=== PATIENT | female | born 1960 | race Caucasian/White ===

== ENCOUNTER 2018-12-10 11:20 | Day surgery (SDC) | payer BC ==
[~2018-12-10] VITALS: Ht 170.2 cm; Wt 54.7 kg
[~2018-12-10 11:20] MED LIST: ALBU3IS INH; ALLERTEC; BENZ100A PO; BISA5EC PO; Boniva150 MG PO; CEFD300 PO; CETI5 PO; CHLO500 PO; CHLORZOXAZONE PO; CHOL10002 PO; CIPR500 PO; CITRACAL + D E1 EACH PO; Cipro250 MG PO; DOCU100 PO; FAMO20 PO; GABA100 PO; Hydrocodone-Ap1 EA23 PO; LAVAP17G PO; LIDO5TP TOP; METCAR500 PO; MUSCLE RELAXER; Milk Of Ma800 MG/5 M PO; Norco 5-325 Ta1 EACH PO; OXYC10TA19 PO; OXYC5 PO; PRED20 PO; Percocet 5-3251 EACH PO; SENN187 PO; Seasonique 0.11 EACH PO
== END 2018-12-10 12:40 | disposition home or self-care (01) ==
LOC: ORSCSDS 11:20
PROVIDERS: Internal Medicine Gastroenterology
PROC: 0DBM8ZX Excision of Descending Colon, Via Natural or Artificial Opening Endoscopic, Diagnostic (ICD-10-PCS; principal; 2018-12-10 12:30)
DX: Z12.11 Encounter for screening for malignant neoplasm of colon (principal); D12.4 Benign neoplasm of descending colon; K64.8 Other hemorrhoids; J44.9 Chronic obstructive pulmonary disease, unspecified; F17.210 Nicotine dependence, cigarettes, uncomplicated; Z79.899 Other long term (current) drug therapy
CPT/HCPCS: 88305; J7120

== ENCOUNTER 2020-11-30 10:30 | Inpatient (IN) | payer OTHER ==
[~2020-11-30] VITALS: Ht 167.6 cm; Wt 57.6 kg
[~2020-11-30 10:30] MED LIST changes: -CITRACAL + D E1 EACH PO; +Caltrate-600 W1 EACH PO
[2020-11-30] MEDS ORDERED: Prednisone10 MG PO (11:10)
[2020-11-30] MEDS ORDERED: LEVFLO500 PO (11:11)
[2020-11-30 11:30] LABS: BASOPHILS ABSOLUTE AUTO 0.02 K/mm3 (0.00-0.23); BASOPHILS PERCENT AUTO 0 % (0-2); EOSINOPHILS ABSOLUTE AUTO 0.01 K/mm3 (0.00-0.68); EOSINOPHILS PERCENT AUTO 0 % (0-6); Hematocrit 44.5 % (33.0-51.0); Hemoglobin 14.4 g/dL (11.5-16.0); IMMATURE GRAN ABSOLUTE AUTO 0.02 K/mm3 (0.00-0.10); IMMATURE GRAN PERCENT AUTO 0 % (0-1); LYMPHOCYTES ABSOLUTE AUTO 0.57 K/mm3 (0.84-5.20); LYMPHOCYTES PERCENT AUTO 7 % (21-46); MONOCYTES PERCENT AUTO 1 % (4-13); Mean Corpuscular HGB 28.9 pg (26.0-34.0); Mean Corpuscular HGB Conc 32.4 g/dL (31.5-36.5); Mean Corpuscular Volume 89 fL (80-100); Mean Platelet Volume 10.1 fL (9.1-12.4); NEUTROPHILS ABSOLUTE AUTO 7.94 K/mm3 (1.96-9.15); NEUTROPHILS PERCENT AUTO 92 % (41-73); Platelet Count 247 K/mm3 (150-400); RDW Coefficient Variation 14.1 % (11.7-14.2); RDW Standard Deviation 45.7 fL (35.1-46.3); Red Blood Cell Count 4.98 M/mm3 (3.80-5.20); White Blood Cell Count 8.66 K/mm3 (4.00-11.30)
[2020-11-30 11:38] LABS: Alanine Aminotransfer (ALT/SGP 153 U/L (12-78); Albumin, Blood 3.5 g/dL (3.4-5.0); Albumin/Globulin Ratio 1.2 (0.8-1.8); Alk Phos 90 U/L (50-136); Anion Gap 5 mmol/L (6-16); Aspartate Aminotrans (AST/SGOT 76 U/L (12-37); Bilirubin, Total 0.7 mg/dL (0.1-1.0); Blood Urea Nitrogen 11 mg/dL (8-24); Bun/Creatinine Ratio 13.6 (12.0-20.0); CO2, Blood 24 mmol/L (21-32); Calcium, Blood 8.5 mg/dL (8.5-10.1); Chloride, Blood 111 mmol/L (98-108); Creatinine, Blood 0.81 mg/dL (0.40-1.00); Glomerular Filtration Rate >60 (60-); Glucose, Blood 132 mg/dL (70-99); Potassium, Blood 4.2 mmol/L (3.5-5.5); Sodium, Blood 140 mmol/L (136-145); Total Protein, Blood 6.5 g/dL (6.4-8.2); Troponin I <0.015 ng/mL (0.000-0.040)
[2020-11-30] MEDS ORDERED: Ventolin/Prove6.7 GM INH (12:53)
[2020-11-30] MEDS ORDERED: ALEN70 PO (13:08)
[2020-11-30 15:05] LABS: PCO2 Arterial 28.7 mmHg (35-45); PO2 Arterial 65.1 mmHg (80-100); pH Blood Arterial 7.46 (7.35-7.45)
--- NOTE | 2020-12-01 04:26 | NUR ---
SHIFT SUMMARY ASSUMED CARE OF PT AT 1900. PT IS A/OX4. HEART SOUNDS REGULAR, PT HAS EXPIRATORY WHEEZING T/O. PT IS ON RA. PT STATES THAT SHE FEELS SO MUCH BETTER NOW THAT SHE HAD THE LASIX. PT IS INDEPENDENT IN HER ROOM. NO ACUTE EVENTS DURING THE NIGHT. PT SLEPT MOST OF THE NIGHT. CALL LIGHT IN REACH, BED IN LOWEST POSTION.
[2020-12-01 05:15] LABS: BASOPHILS ABSOLUTE AUTO 0.02 K/mm3 (0.00-0.23); BASOPHILS PERCENT AUTO 0 % (0-2); EOSINOPHILS PERCENT AUTO 0 % (0-6); Hematocrit 42.1 % (33.0-51.0); Hemoglobin 13.9 g/dL (11.5-16.0); IMMATURE GRAN ABSOLUTE AUTO 0.05 K/mm3 (0.00-0.10); IMMATURE GRAN PERCENT AUTO 0 % (0-1); LYMPHOCYTES ABSOLUTE AUTO 0.55 K/mm3 (0.84-5.20); LYMPHOCYTES PERCENT AUTO 5 % (21-46); MONOCYTES ABSOLUTE AUTO 0.13 K/mm3 (0.16-1.47); MONOCYTES PERCENT AUTO 1 % (4-13); Mean Corpuscular HGB 28.3 pg (26.0-34.0); Mean Corpuscular Volume 86 fL (80-100); Mean Platelet Volume 10.1 fL (9.1-12.4); NEUTROPHILS ABSOLUTE AUTO 11.25 K/mm3 (1.96-9.15); NEUTROPHILS PERCENT AUTO 94 % (41-73); Platelet Count 254 K/mm3 (150-400); RDW Coefficient Variation 13.9 % (11.7-14.2); RDW Standard Deviation 43.1 fL (35.1-46.3); Red Blood Cell Count 4.91 M/mm3 (3.80-5.20)
[2020-12-01 05:35] LABS: Alanine Aminotransfer (ALT/SGP 115 U/L (12-78); Albumin, Blood 3.4 g/dL (3.4-5.0); Albumin/Globulin Ratio 1.2 (0.8-1.8); Alk Phos 75 U/L (50-136); Anion Gap 7 mmol/L (6-16); Aspartate Aminotrans (AST/SGOT 31 U/L (12-37); Bilirubin, Total 0.8 mg/dL (0.1-1.0); Blood Urea Nitrogen 14 mg/dL (8-24); Bun/Creatinine Ratio 17.9 (12.0-20.0); CO2, Blood 24 mmol/L (21-32); Calcium, Blood 8.7 mg/dL (8.5-10.1); Chloride, Blood 109 mmol/L (98-108); Creatinine, Blood 0.78 mg/dL (0.40-1.00); Globulin, Blood 2.8 g/dL (2.2-4.0); Glomerular Filtration Rate >60 (60-); Glucose, Blood 146 mg/dL (70-99); Magnesium, Blood 2.2 mg/dL (1.6-2.4); Potassium, Blood 3.6 mmol/L (3.5-5.5); Sodium, Blood 140 mmol/L (136-145); Total Protein, Blood 6.2 g/dL (6.4-8.2)
--- NOTE | 2020-12-01 17:01 | NUR ---
Per admit trigger, I was tasked to speak to Ellyn about ACP. She already had an advanced directive packet and told me she and her spouse will complete this hospitalization. Provided some guidence with good effect. Remodeler services will remain available.
--- NOTE | 2020-12-01 18:31 | NUR ---
SHIFT SUMMARY PT IS A&O, INDEPENT IN THE ROOM. PT IS ON RA AND CAN EXPERIENCE SOB AFTER WALKING AROUND IN ROOM. PT WAS PUT ON TELE AFTER DR LIGHT SAW PT IN AFTERNOON. PT CURENLTY RUNNING SINUS TACH AT 130. PT STARTED NEW BLOOD PRESSURE MEDICINE THIS EVENING. PT HAS A HARSH COUGH THAT IS NONPRODUCTIVE MOST OF THE TIME. LUNGS ARE DIM IN BASES AND SHE IS RECEIVING BREATHING TREATMENTS. CURENTLY IN ROOM ON PHONE, CALL LIGHT W/IN REACH.
--- NOTE | 2020-12-02 04:16 | NUR ---
SHIFT SUMMARY ASSUMED CARE OF PT AT 1900. PT IS A/OX4. INDEPENDENT IN ROOM. HEART SOUNDS REGULAR, TELE SHOWS SINUS TACH, LUNG SOUNDS HAVE EXP WHEEZING T/O. PT STATES SHE FEELS MORE SOB THAN YESTERDAY. PT C/O COUGH, CALLED HOSPITALIST AND ORDERED MEDICATIONS. PT TOOK A WALK AROUND THE HALLS BEUCASE SHE COULD NOT SLEEP. NO ACUTE EVENTS DURING THE NIGHT. CALL LIGHT IN REACH, BED IN LOWEST POSTION.
--- NOTE | 2020-12-02 17:14 | NUR ---
SUMMARY PT SITTING UP IN BED TALKING ON THE PHONE, PT HAS BEEN PLEASANT AND COOPERATIVE WITH CARE, INDEPENDENT IN THE ROOM, OCC COUGH, SOB WITH ACTIVITY, FAMILY HAS BEEN IN TO VISIT, NO COMPLAINTS, WILL CONT TO MONITOR
[2020-12-03 05:27] LABS: BASOPHILS ABSOLUTE AUTO 0.03 K/mm3 (0.00-0.23); BASOPHILS PERCENT AUTO 0 % (0-2); EOSINOPHILS PERCENT AUTO 0 % (0-6); Hematocrit 42.6 % (33.0-51.0); Hemoglobin 13.9 g/dL (11.5-16.0); IMMATURE GRAN PERCENT AUTO 1 % (0-1); LYMPHOCYTES PERCENT AUTO 3 % (21-46); MONOCYTES ABSOLUTE AUTO 0.54 K/mm3 (0.16-1.47); MONOCYTES PERCENT AUTO 3 % (4-13); Mean Corpuscular HGB 28.7 pg (26.0-34.0); Mean Corpuscular HGB Conc 32.6 g/dL (31.5-36.5); Mean Corpuscular Volume 88 fL (80-100); Mean Platelet Volume 10.1 fL (9.1-12.4); NEUTROPHILS ABSOLUTE AUTO 18.35 K/mm3 (1.96-9.15); NEUTROPHILS PERCENT AUTO 93 % (41-73); Platelet Count 248 K/mm3 (150-400); RDW Coefficient Variation 14.6 % (11.7-14.2); RDW Standard Deviation 46.5 fL (35.1-46.3); Red Blood Cell Count 4.84 M/mm3 (3.80-5.20); White Blood Cell Count 19.72 K/mm3 (4.00-11.30)
[2020-12-03 06:05] LABS: Albumin, Blood 3.5 g/dL (3.4-5.0); Anion Gap 8 mmol/L (6-16); Blood Urea Nitrogen 28 mg/dL (8-24); Bun/Creatinine Ratio 30.1 (12.0-20.0); CO2, Blood 24 mmol/L (21-32); Calcium, Blood 8.7 mg/dL (8.5-10.1); Chloride, Blood 106 mmol/L (98-108); Creatinine, Blood 0.93 mg/dL (0.40-1.00); Glomerular Filtration Rate >60 (60-); Glucose, Blood 121 mg/dL (70-99); Phosphorus, Blood 3.9 mg/dL (2.5-4.9); Potassium, Blood 4.5 mmol/L (3.5-5.5); Sodium, Blood 138 mmol/L (136-145)
--- NOTE | 2020-12-03 07:18 | NUR ---
SHIFT SUMMARY PATIENT ALERT AND ORIENTED. PATIENT HAD NO COMPLAINTS OF PAIN, DID HAVE SOME SHORTNESS OF BREATH. MEDICATED PER EMAR FOR COUGH. PATIENT HAD A HARD TIME SLEEPING TONIGHT. IV PATENT AND FLUSHED. BED IN LOWEST POSITION WITH WHEELS LOCKED. CALL LIGHT WITHIN REACH. REPORT GIVEN TO ONCOMING RN.
--- NOTE | 2020-12-03 18:24 | NUR ---
SHIFT SUMMARY: PT REPORTED INTERMITTENT CHEST TIGHTNESS/PRESSURE THIS MORNING, RADIATED TO L RIBCAGE AND L ARM. ON TELEMETRY, NOTED TO HAVE HAD RUN OF PVC'S AT TIME OF INCIDENT. OTHERWISE, TELEMETRY SHOWED SR 90-100. ON ROOM AIR, [facility] COUGH, HAVING I/E WHEEZES. FOUND TO HAVE ORAL THRUSH, STARTED ON NYSTATIN SUSPENSION. HAD REPEAT CXR, TROPONIN, AND BNP. IS INDEPENDENT IN ROOM. HAD LONG CONVERSATION AND MUCH TEACHING WITH PT AND HER SISTER TAVO THIS AFTERNOON, AND DR. DONALDSON AND Linnea ZEE FROM [facility] ALSO ENGAGED AND ANSWERED MANY OF THEIR QUESTIONS. TAKING ADEQUATE PO. DENIED PAIN. WAS HOPING TO GO HOME TODAY, BUT POSSIBLY SATURDAY PER PROVIDER.
[2020-12-04 05:20] LABS: BASOPHILS ABSOLUTE AUTO 0.02 K/mm3 (0.00-0.23); BASOPHILS PERCENT AUTO 0 % (0-2); EOSINOPHILS ABSOLUTE AUTO 0.01 K/mm3 (0.00-0.68); EOSINOPHILS PERCENT AUTO 0 % (0-6); Hematocrit 43.3 % (33.0-51.0); Hemoglobin 14.2 g/dL (11.5-16.0); IMMATURE GRAN ABSOLUTE AUTO 0.07 K/mm3 (0.00-0.10); IMMATURE GRAN PERCENT AUTO 0 % (0-1); LYMPHOCYTES PERCENT AUTO 4 % (21-46); MONOCYTES ABSOLUTE AUTO 0.48 K/mm3 (0.16-1.47); MONOCYTES PERCENT AUTO 3 % (4-13); Mean Corpuscular HGB 28.7 pg (26.0-34.0); Mean Corpuscular HGB Conc 32.8 g/dL (31.5-36.5); Mean Corpuscular Volume 88 fL (80-100); Mean Platelet Volume 9.8 fL (9.1-12.4); NEUTROPHILS ABSOLUTE AUTO 15.28 K/mm3 (1.96-9.15); NEUTROPHILS PERCENT AUTO 92 % (41-73); Platelet Count 244 K/mm3 (150-400); RDW Coefficient Variation 14.6 % (11.7-14.2); Red Blood Cell Count 4.94 M/mm3 (3.80-5.20); White Blood Cell Count 16.56 K/mm3 (4.00-11.30)
[2020-12-04 05:40] LABS: Albumin, Blood 3.5 g/dL (3.4-5.0); Anion Gap 5 mmol/L (6-16); Blood Urea Nitrogen 30 mg/dL (8-24); Bun/Creatinine Ratio 33.2 (12.0-20.0); CO2, Blood 27 mmol/L (21-32); Calcium, Blood 8.4 mg/dL (8.5-10.1); Chloride, Blood 104 mmol/L (98-108); Glomerular Filtration Rate >60 (60-); Glucose, Blood 105 mg/dL (70-99); Potassium, Blood 4.7 mmol/L (3.5-5.5); Sodium, Blood 136 mmol/L (136-145)
--- NOTE | 2020-12-04 05:47 | NUR ---
SHIFT SUMMARY PATIENT ALERT AND ORIENTED. HAS BEEN EXPERIENCING OCCASIONAL BOUTS OF COUGHING WITH RELATED SHORTNESS OF BREATH. SHE DID NOT HAVE ANY ADDITIONAL CHEST PAIN OR PRESSURE, BUT DID HAVE AN EPISODE OF NAUSEA AND DIZZINESS. VITALS WERE TAKEN AND WERE NORMAL. AND PATIENT REPORTED THE SENSATIONS QUICKLY WENT AWAY. IV PATENT AND FLUSHED. BED IN LOWEST POSITION WITH WHEELS LOCKED. CALL LIGHT WITHIN REACH. REPORT GIVEN TO ONCOMING RN.
--- NOTE | 2020-12-04 18:24 | NUR ---
SHIFT SUMMARY: NO ACUTE EVENTS THIS SHIFT. NO EPISODES OF CHEST DISCOMFORT OR DIZZINESS. COUGHING HAS REDUCED SIGNIFICANTLY. AMBULATING INDEPENDENTLY IN ROOM OFTEN. ORAL THRUSH APPEARS IMPROVED AND PT STATED THAT SXS ARE MUCH BETTER. BREATH SOUNDS IMPROVED, IS MOVING MORE AIR. DENIED PAIN, N/V. HAD VISIT FROM DAUGHTER TODAY. IS LOOKING FORWARD TO GOING HOME, POSSIBLY TOMORROW.
[2020-12-05 05:16] LABS: BASOPHILS ABSOLUTE AUTO 0.01 K/mm3 (0.00-0.23); BASOPHILS PERCENT AUTO 0 % (0-2); EOSINOPHILS ABSOLUTE AUTO 0.01 K/mm3 (0.00-0.68); EOSINOPHILS PERCENT AUTO 0 % (0-6); Hematocrit 47.5 % (33.0-51.0); Hemoglobin 15.4 g/dL (11.5-16.0); IMMATURE GRAN ABSOLUTE AUTO 0.07 K/mm3 (0.00-0.10); IMMATURE GRAN PERCENT AUTO 1 % (0-1); LYMPHOCYTES ABSOLUTE AUTO 1.01 K/mm3 (0.84-5.20); LYMPHOCYTES PERCENT AUTO 7 % (21-46); MONOCYTES ABSOLUTE AUTO 0.67 K/mm3 (0.16-1.47); MONOCYTES PERCENT AUTO 5 % (4-13); Mean Corpuscular HGB 28.5 pg (26.0-34.0); Mean Corpuscular HGB Conc 32.4 g/dL (31.5-36.5); Mean Corpuscular Volume 88 fL (80-100); Mean Platelet Volume 9.6 fL (9.1-12.4); NEUTROPHILS ABSOLUTE AUTO 12.24 K/mm3 (1.96-9.15); NEUTROPHILS PERCENT AUTO 87 % (41-73); Platelet Count 257 K/mm3 (150-400); RDW Coefficient Variation 14.6 % (11.7-14.2); RDW Standard Deviation 46.5 fL (35.1-46.3); White Blood Cell Count 14.01 K/mm3 (4.00-11.30)
--- NOTE | 2020-12-05 07:26 | NUR ---
SHIFT SUMMARY PATIENT ALERT AND ORIENTED. HAD NO COMPLAINTS OF PAIN AND MINIMAL SHORTNESS OF BREATH. SHE REPORTED THAT SHE WAS ABLE TO SLEEP WELL ALL NIGHT. SHE HAD MINIMAL NEEDS OVERNIGHT. IV PATENT AND FLUSHED. BED IN LOWEST POSITION WITH WHEELS LOCKED. CALL LIGHT WITHIN REACH. REPORT GIVEN TO ONCOMING RN.
[2020-12-05] MEDS ORDERED: ALBU2.5V5 INH (11:18)
[2020-12-05] MEDS ORDERED: IPRAT-ALBUT 0.5-3 ML INH (11:22)
[2020-12-05] MEDS ORDERED: LISI5 PO (11:24)
[2020-12-05] MEDS ORDERED: METO25ER PO (11:25)
[2020-12-05] MEDS ORDERED: NYSTATIN100000 UN1 PO (11:27)
[2020-12-05] MEDS ORDERED: Sodium Chloride15 M1 INH (11:28)
[2020-12-05] MEDS ORDERED: FLUT1DIS5 INH (11:29)
[2020-12-05] MEDS ORDERED: GUAI600T33 PO (11:32)
--- NOTE | 2020-12-05 13:49 | NUR ---
PT DISCHARGED THE PT VERBALIZED UNDERSTANDING OF THE DC INSTRUCTIONS, THE PTS PRESCRIPTIONS WERE FAXED TO [facility] IN [place] REQUESTED, THE PT APPEARED TO BE BREATHING EASILY ON RA AT THE TIME OF DC, THE PT WAS TRANSFERED VIA WHEELCHAIR TO THE FRONT TO MEET HER RIDE
[2021-05-25] MEDS ORDERED: SPIRIVA RESPIMAT4 G3 INH (10:29)
[2021-06-02] MEDS ORDERED: PRED20 PO (12:26)
== END 2020-12-05 12:30 | disposition home or self-care (01) | DRG 291 ==
LOC: ER 10:30 → MEDS 13:40 → ENPENDDIS 12-05 10:55 → MEDS 12-05 12:30
PROVIDERS: Emergency Medicine; Family Medicine; Nurse Practitioner Acute Care; ADMIT Internal Medicine
PROC: 5A09357 Assistance with Respiratory Ventilation, Less than 24 Consecutive Hours, Continuous Positive Airway Pressure (ICD-10-PCS; principal; 2020-11-30)
DX: I50.21 Acute systolic (congestive) heart failure (principal); J96.01 Acute respiratory failure with hypoxia; J44.1 Chronic obstructive pulmonary disease with (acute) exacerbation; J98.11 Atelectasis; I34.0 Nonrheumatic mitral (valve) insufficiency; Z66 Do not resuscitate; T38.0X5A Adverse effect of glucocorticoids and synthetic analogues, initial encounter; R74.01 Elevation of levels of liver transaminase levels; F17.210 Nicotine dependence, cigarettes, uncomplicated
CPT/HCPCS: 36415; 36600; 71045; 71260; 80053; 80069; 82803; 83735; 83880; 84484; 85025; 93005; 93010; 94640; 94664; 94667; 94668; 94760; 96374-59; 96375-59; 98960; 99285-25; 99407; A9270; C8929; J1650; J1940; J2930; Q9957; Q9967

== ENCOUNTER 2020-12-12 10:36 | Emergency (ER) | payer OTHER ==
[~2020-12-12] VITALS: Ht 167.6 cm; Wt 52.2 kg
[~2020-12-12 10:36] MED LIST changes: +ALBU2.5V5 INH; +ALEN70 PO; +FLUT1DIS5 INH; +GUAI600T33 PO; +IPRAT-ALBUT 0.5-3 ML INH; +LEVFLO500 PO; +LISI5 PO; +METO25ER PO; +NYSTATIN100000 UN1 PO; +Prednisone10 MG PO; +Sodium Chloride15 M1 INH; +Ventolin/Prove6.7 GM INH
[2020-12-12 11:42] LABS: BASOPHILS ABSOLUTE AUTO 0.05 K/mm3 (0.00-0.23); BASOPHILS PERCENT AUTO 0 % (0-2); EOSINOPHILS ABSOLUTE AUTO 0.08 K/mm3 (0.00-0.68); EOSINOPHILS PERCENT AUTO 1 % (0-6); Hematocrit 51.7 % (33.0-51.0); Hemoglobin 16.7 g/dL (11.5-16.0); IMMATURE GRAN PERCENT AUTO 1 % (0-1); LYMPHOCYTES ABSOLUTE AUTO 2.14 K/mm3 (0.84-5.20); LYMPHOCYTES PERCENT AUTO 16 % (21-46); MONOCYTES ABSOLUTE AUTO 0.61 K/mm3 (0.16-1.47); MONOCYTES PERCENT AUTO 5 % (4-13); Mean Corpuscular HGB 28.2 pg (26.0-34.0); Mean Corpuscular HGB Conc 32.3 g/dL (31.5-36.5); Mean Corpuscular Volume 87 fL (80-100); Mean Platelet Volume 9.2 fL (9.1-12.4); NEUTROPHILS ABSOLUTE AUTO 10.13 K/mm3 (1.96-9.15); NEUTROPHILS PERCENT AUTO 77 % (41-73); Platelet Count 256 K/mm3 (150-400); RDW Coefficient Variation 14.7 % (11.7-14.2); RDW Standard Deviation 47.1 fL (35.1-46.3); Red Blood Cell Count 5.93 M/mm3 (3.80-5.20); White Blood Cell Count 13.11 K/mm3 (4.00-11.30)
[2020-12-12 12:00] LABS: Alanine Aminotransfer (ALT/SGP 48 U/L (12-78); Albumin, Blood 3.6 g/dL (3.4-5.0); Albumin/Globulin Ratio 1.2 (0.8-1.8); Alk Phos 77 U/L (50-136); Anion Gap 6 mmol/L (6-16); Aspartate Aminotrans (AST/SGOT 23 U/L (12-37); Bilirubin, Total 0.6 mg/dL (0.1-1.0); Blood Urea Nitrogen 17 mg/dL (8-24); Bun/Creatinine Ratio 19.8 (12.0-20.0); CO2, Blood 27 mmol/L (21-32); Calcium, Blood 8.4 mg/dL (8.5-10.1); Chloride, Blood 102 mmol/L (98-108); Creatinine, Blood 0.86 mg/dL (0.40-1.00); Globulin, Blood 3.1 g/dL (2.2-4.0); Glomerular Filtration Rate >60 (60-); Glucose, Blood 77 mg/dL (70-99); Potassium, Blood 4.8 mmol/L (3.5-5.5); Sodium, Blood 135 mmol/L (136-145); Total Protein, Blood 6.7 g/dL (6.4-8.2); Troponin I <0.015 ng/mL (0.000-0.040)
[2021-05-25] MEDS ORDERED: SPIRIVA RESPIMAT4 G3 INH (10:29)
[2021-06-02] MEDS ORDERED: PRED20 PO (12:26)
== END 2020-12-12 14:12 | disposition home or self-care (01) ==
LOC: ER 10:36
PROVIDERS: Emergency Medicine
DX: J44.1 Chronic obstructive pulmonary disease with (acute) exacerbation (principal); Z79.52 Long term (current) use of systemic steroids; Z79.899 Other long term (current) drug therapy
CPT/HCPCS: 36415; 71045; 80053; 83880; 84484; 85025; 93005; 93010; 94640; 96374; 99283-25; A9270; J1940

== ENCOUNTER 2021-01-11 10:28 | Day surgery (SDC) | payer OTHER ==
[~2021-01-11] VITALS: Ht 167.6 cm; Wt 60.0 kg
[2021-01-11] MEDS ORDERED: FURO20 PO (11:04)
--- NOTE | 2021-01-11 16:04 | NUR ---
Pt verbalizes understanding written and verbal orders. Denies questions or comments. VSS. NADA. TR Band fully deflated. no bleeding noted. slight hematoma distal to TR Band. Reduced with manual pressure held.
--- NOTE | 2021-01-11 16:14 | NUR ---
PT AMBULATES TO RESTROOM AND BACK WITHOUT DIFF. NADN. VSS. PT DRESSING SELF WITHOUT DIFF.
--- NOTE | 2021-01-11 16:29 | NUR ---
TR BAND REMOVED. DOT DRESSING IN PLACE WITH PRESSURE DSG APPLIED. PT ADVISED TO REMOVE THIS EVENING IN A FEW HOURS. VERBALIZES UNDERSTANDING. SPLINT AND SLING TO R ARM. TOLERATES WELL. PT IV DC'D. CATH INTACT. PRESSURE DSG APPLIED. PT DC TO HOME VIA WC TO SISTER.
[2021-05-25] MEDS ORDERED: SPIRIVA RESPIMAT4 G3 INH (10:29)
[2021-06-02] MEDS ORDERED: PRED20 PO (12:26)
== END 2021-01-11 16:30 | disposition home or self-care (01) ==
LOC: MHTC 10:28
DX: I50.42 Chronic combined systolic (congestive) and diastolic (congestive) heart failure (principal); J44.9 Chronic obstructive pulmonary disease, unspecified; F17.210 Nicotine dependence, cigarettes, uncomplicated
CPT/HCPCS: 76937; 93460; 99152; C1769; C1894; J1644; J2250; J3010; J7030; J7050; Q9967

== ENCOUNTER 2021-05-26 08:01 | Day surgery (SDC) | payer OTHER ==
[~2021-05-26] VITALS: Ht 170.2 cm; Wt 56.1 kg
[~2021-05-26 08:01] MED LIST changes: +FURO20 PO; +SPIRIVA RESPIMAT4 G3 INH
--- NOTE | 2021-05-26 08:57 | NUR ---
Patient up to Ambulate independently. Gait steady. History, Chart, Medications and Allergies reviewed before start of procedure. LS COARSE, REPORTS TAKING MULT TX'S THIS AM, PT REPORTS NOT SOB AT THIS TIME. DENIES CP. Patient confirms NPO status and agrees with scheduled surgery. Pre-Op teaching done. Pt verbalizes understanding.
--- NOTE | 2021-05-26 09:42 | NUR ---
05/26/21 0942 Elmer Ricketts HISTORY,CHART, MEDICATIONS AND ALLERGIES REVIEWED BEFORE START OF PROCEDURE. PATIENT CONFIRMS NPO STATUS AND AGREES WITH SCHEDULED PROCEDURE. 3-LEAD EKG REVIEWED WITH PHYSICIAN PRIOR TO START OF PROCEDURE. MONITOR INTACT WITH CONTINUOUS PULSE OXIMETRY AND INTERMITTENT BP. SUPPLEMENTAL O2 TO BE TITRATED THROUGHOUT PROCEDURE TO MAINTAIN O2 SATURATION ABOVE 90%. PATIENT DETERMINED TO BE ASA APPROPRIATE FOR MODERATE SEDATION PRIOR TO START OF PROCEDURE BY DR. RAHMAN. Bite Block Placed.
--- NOTE | 2021-05-26 11:58 | NUR ---
DR. RAHMAN AT BEDSIDE TO CONSULT WITH PT.
--- NOTE | 2021-05-26 12:25 | NUR ---
Patient up to Ambulate independently. Gait steady. Discharge instructions reviewed with patient. Patient verbalizes understanding. Copy given to patient to take home. Patient States Post-Procedure ride home has been arranged WITH FAMILY GIVING PT RIDE HOME. PT VSS. PT DENIES DIFFICULTY BREATHING, SOB. DR RAHMAN REPORTED NO NEED FOR ADDITIONAL BREATHING TXS BEFORE DISCHARGE. PT TOLERATING PO INTAKE. IV OUT WNL, NO OTHER IV'S IN PLACE.
[2021-06-02] MEDS ORDERED: PRED20 PO (12:26)
== END 2021-05-26 12:30 | disposition home or self-care (01) ==
LOC: ORSCMMR 08:01 → ORD 09:00 → ORSCMMR 12:30
PROVIDERS: Internal Medicine Pulmonary Disease
PROC: 0BJ08ZZ Inspection of Tracheobronchial Tree, Via Natural or Artificial Opening Endoscopic (ICD-10-PCS; principal; 2021-05-26 09:00)
DX: J43.2 Centrilobular emphysema (principal); F17.210 Nicotine dependence, cigarettes, uncomplicated; Z79.899 Other long term (current) drug therapy
CPT/HCPCS: 87070; 87106; 87205; A9270; J0171; J2250; J3010; J7120

== ENCOUNTER 2021-06-04 09:10 | Inpatient (IN) | payer OTHER ==
[~2021-06-04] VITALS: Ht 170.2 cm; Wt 60.0 kg
[2021-06-04 09:34] LABS: BASOPHILS ABSOLUTE AUTO 0.09 K/mm3 (0.00-0.23); BASOPHILS PERCENT AUTO 1 % (0-2); EOSINOPHILS ABSOLUTE AUTO 0.17 K/mm3 (0.00-0.68); EOSINOPHILS PERCENT AUTO 1 % (0-6); Hematocrit 46.8 % (33.0-51.0); Hemoglobin 15.8 g/dL (11.5-16.0); IMMATURE GRAN ABSOLUTE AUTO 0.04 K/mm3 (0.00-0.10); IMMATURE GRAN PERCENT AUTO 0 % (0-1); LYMPHOCYTES ABSOLUTE AUTO 3.39 K/mm3 (0.84-5.20); LYMPHOCYTES PERCENT AUTO 25 % (21-46); MONOCYTES ABSOLUTE AUTO 0.73 K/mm3 (0.16-1.47); MONOCYTES PERCENT AUTO 5 % (4-13); Mean Corpuscular HGB 31.2 pg (26.0-34.0); Mean Corpuscular HGB Conc 33.8 g/dL (31.5-36.5); Mean Corpuscular Volume 93 fL (80-100); Mean Platelet Volume 9.3 fL (9.1-12.4); NEUTROPHILS ABSOLUTE AUTO 9.19 K/mm3 (1.96-9.15); NEUTROPHILS PERCENT AUTO 68 % (41-73); Platelet Count 231 K/mm3 (150-400); RDW Standard Deviation 44.1 fL (35.1-46.3); Red Blood Cell Count 5.06 M/mm3 (3.80-5.20); White Blood Cell Count 13.61 K/mm3 (4.00-11.30)
[2021-06-04 10:01] LABS: Alanine Aminotransfer (ALT/SGP 19 U/L (12-78); Albumin/Globulin Ratio 1.2 (0.8-1.8); Alk Phos 81 U/L (50-136); Anion Gap 7 mmol/L (6-16); Aspartate Aminotrans (AST/SGOT 15 U/L (12-37); Bilirubin, Total 0.4 mg/dL (0.1-1.0); Blood Urea Nitrogen 15 mg/dL (8-24); Bun/Creatinine Ratio 18.7 (12.0-20.0); CO2, Blood 23 mmol/L (21-32); Calcium, Blood 8.7 mg/dL (8.5-10.1); Chloride, Blood 109 mmol/L (98-108); Globulin, Blood 3.4 g/dL (2.2-4.0); Glomerular Filtration Rate >60 (60-); Glucose, Blood 94 mg/dL (70-99); Potassium, Blood 3.9 mmol/L (3.5-5.5); Sodium, Blood 139 mmol/L (136-145); Total Protein, Blood 7.4 g/dL (6.4-8.2)
--- NOTE | 2021-06-04 16:41 | NUR ---
Initial palliative care consult: Ellyn is a 61 year old with a history of CHF and COPD. She was admitted today for increasing SOB. Nursing requested PC to see pt as pt has questions re: AD and POLST forms. Ellyn and her dtr are present. Reviewed POLST and AD forms and answered questions. Ellyn would like to work on these forms during her hospital stay. Forms left on her bedside table with a pen. Will have PC staff check in with her tomorrow to see if she would like assistance in filling these forms out or if she has any additional questions. Ellyn has SOB at rest. She is able to speak in full sentences, however she is using some accessory muscles. No cough noted during the visit. She is on oxygen. No pain. No n/v. She reports she gets fatigues easily. She knew it was time to get some help when she had difficulty getting from her bedroom to the kitchen this morning. Ellyn lives with her of 44 years. She is independent with ADLs. Her sister takes her to her medical appointments. She has several family members who live in adjoining property so she feels well supported. She states her would have difficulty making medical decisions for her. Her dtr states that her dad is in denial about her mother's lung disease. Kept this visit brief as to not make Ellyn too tired and more SOB. PC to check in tomorrow re: AD/POLST. Nursing updated.
[2021-06-04 17:50] LABS: SARS-Cov-2 (COVID-19) PCR, MMC NEGATIVE (NEGATIVE)
--- NOTE | 2021-06-04 18:05 | NUR ---
SHIFT SUMMARY PT ARRIVED TO UNIT FROM ED THIS AFTERNOON. PT ARRIVED ON BIPAP. RT ALLOWED PT TO REMOVE BIPAP AND TRANSITION TO NC IF ABLE TO TOLERATE. PT CURRENLTY ON 3.5 L OF OXYGEN VIA NC, OXYGEN SATURATION MAINTAINED ABOVE 92%. HR STABLE. BP STABLE. NO CP OR PRESSURE. PT SBA TO COMMODE. PT CONCERNED ABOUT RESULTS FROM BRONCH LAST WEEK AND HOW TO TREAT POSSIBLE INFECTION. WILL INFORM PHYSICIAN OF PT'S CONCERNS. WILL CONT TO MONITOR UNTIL REPORT GIVEN TO JUAN JOSE NORMAN.
--- NOTE | 2021-06-04 18:34 | NUR ---
UPDATE SPOKE WITH PHYSICIAN REGARDING PT'S CONCERNS REGARDING BRONCH RESULTS. PHYSIICAN SPOKE WITH PT. PHYSICIAN TO PROGRESS REGULAR DIET D/T NOT BEING BIPAP DEPENDENT.
[2021-06-05 03:44] LABS: Base Excess Venous -3.2 mmol/L; Bicarbonate Venous 22.3 mmol/L (24.0-30.0); PCO2 Venous 32.8 mmHg (38-42); pH Blood Venous 7.42 (7.34-7.37)
[2021-06-05 04:12] LABS: BASOPHILS ABSOLUTE AUTO 0.01 K/mm3 (0.00-0.23); BASOPHILS PERCENT AUTO 0 % (0-2); EOSINOPHILS PERCENT AUTO 0 % (0-6); Hematocrit 42.7 % (33.0-51.0); Hemoglobin 14.6 g/dL (11.5-16.0); IMMATURE GRAN PERCENT AUTO 1 % (0-1); LYMPHOCYTES ABSOLUTE AUTO 0.62 K/mm3 (0.84-5.20); LYMPHOCYTES PERCENT AUTO 4 % (21-46); MONOCYTES ABSOLUTE AUTO 0.23 K/mm3 (0.16-1.47); MONOCYTES PERCENT AUTO 1 % (4-13); Mean Corpuscular HGB 31.5 pg (26.0-34.0); Mean Corpuscular HGB Conc 34.2 g/dL (31.5-36.5); Mean Corpuscular Volume 92 fL (80-100); Mean Platelet Volume 9.5 fL (9.1-12.4); NEUTROPHILS ABSOLUTE AUTO 14.94 K/mm3 (1.96-9.15); NEUTROPHILS PERCENT AUTO 94 % (41-73); Platelet Count 215 K/mm3 (150-400); RDW Standard Deviation 43.6 fL (35.1-46.3); Red Blood Cell Count 4.64 M/mm3 (3.80-5.20)
[2021-06-05 04:31] LABS: Anion Gap 8 mmol/L (6-16); Blood Urea Nitrogen 16 mg/dL (8-24); Bun/Creatinine Ratio 20.4 (12.0-20.0); CO2, Blood 22 mmol/L (21-32); Calcium, Blood 8.3 mg/dL (8.5-10.1); Chloride, Blood 109 mmol/L (98-108); Creatinine, Blood 0.79 mg/dL (0.40-1.00); Glomerular Filtration Rate >60 (60-); Glucose, Blood 130 mg/dL (70-99); Potassium, Blood 3.8 mmol/L (3.5-5.5); Sodium, Blood 139 mmol/L (136-145)
--- NOTE | 2021-06-05 05:38 | NUR ---
SHIFT SUMMARY PATIENT ALERT AND ORIENTED. WAS MEDICATED PER EMAR FOR HEADACHE. DESATS IND IS DYSPNIC ON EXHERTION. ON 5 LITERS O2 VIA NASAL CANULA WHEN TAKING A BREAK FROM THE BIPAP. IV PATENT AND FLUSHED. BED IN LOWEST POSTIION WITH WHEELS LOCKED. CALL LIGHT WITHIN REACH. REPORT GIVEN TO ONCVANE NORMAN.
[2021-06-05 16:36] LABS: Adenovirus Not Detected (NOT DETECT); Coronavirus 229E Not Detected (NOT DETECT)
[2021-06-05 16:37] LABS: Bordetella pertussis Not Detected (NOT DETECT); Chlamydophila pneumoniae Not Detected (NOT DETECT); Coronavirus HKU1 Not Detected (NOT DETECT); Coronavirus NL63 Not Detected (NOT DETECT); Coronavirus OC43 Not Detected (NOT DETECT); Human Metapneumovirus Not Detected (NOT DETECT); Human Rhinovirus/Enterovirus Not Detected (NOT DETECT); Influenza A/2009-H1 Not Detected (NOT DETECT); Influenza A/H1 Not Detected (NOT DETECT); Influenza A/H3 Not Detected (NOT DETECT); Influenza B Not Detected (NOT DETECT); Mycoplasma pneumoniae Not Detected (NOT DETECT); Parainfluenza Virus 1 Not Detected (NOT DETECT); Parainfluenza Virus 2 Not Detected (NOT DETECT); Parainfluenza Virus 3 Not Detected (NOT DETECT); Parainfluenza Virus 4 Not Detected (NOT DETECT); Respiratory Syncytial Virus Not Detected (NOT DETECT); SARS-Cov-2 (COVID-19), BioFire Not Detected (NOT DETECT)
--- NOTE | 2021-06-05 18:02 | NUR ---
SHIFT SUMMARY PT A&OX4, PLEASANT & COOPERATIVE WITH CARE. ON 5LNC OR BIPAP. AMB INDEPENDENTLY STAND PIVOT TO BSC; DESATS WITH EXERTION. VOIDING WELL, DENIES BM (MIRALAX GIVEN). HICKMAN PAIN TX'D WITH TYLENOL; ABX ORDERED PER JAN. USES CALL LIGHT APPROPRIATELY. WILL REPORT TO ONCOMING NOC RN.
--- NOTE | 2021-06-05 20:38 | NUR ---
CONFIRMED WITH PHARAMACY THE CEFTRIAXONE 1GR GIVEN AT 1314 WAS FOR AN INTENDED 1300 DOSE I WOULD STILL GIVE THE 2100, PHARMACY TO SEND
[2021-06-06 04:06] LABS: Hematocrit 41.8 % (33.0-51.0); Hemoglobin 14.4 g/dL (11.5-16.0); Mean Corpuscular HGB 31.4 pg (26.0-34.0); Mean Corpuscular HGB Conc 34.4 g/dL (31.5-36.5); Mean Corpuscular Volume 91 fL (80-100); Mean Platelet Volume 9.7 fL (9.1-12.4); Platelet Count 230 K/mm3 (150-400); RDW Coefficient Variation 12.9 % (11.7-14.2); RDW Standard Deviation 43.3 fL (35.1-46.3); Red Blood Cell Count 4.59 M/mm3 (3.80-5.20); White Blood Cell Count 17.62 K/mm3 (4.00-11.30)
[2021-06-06 04:34] LABS: Anion Gap 9 mmol/L (6-16); Blood Urea Nitrogen 24 mg/dL (8-24); Bun/Creatinine Ratio 26.1 (12.0-20.0); CO2, Blood 22 mmol/L (21-32); Calcium, Blood 8.7 mg/dL (8.5-10.1); Chloride, Blood 107 mmol/L (98-108); Creatinine, Blood 0.92 mg/dL (0.40-1.00); Glomerular Filtration Rate >60 (60-); Glucose, Blood 116 mg/dL (70-99); Potassium, Blood 4.2 mmol/L (3.5-5.5); Sodium, Blood 138 mmol/L (136-145)
--- NOTE | 2021-06-06 05:50 | NUR ---
PATIENT IS ALERT AND ORIENTATED, ABLE TO MAKE NEEDS KNOWN, USES CALL LIGHT APPROPRAITELY, INDEPENDENT TO BEDSIDE COMMODE, PATIENT AROUND 0400 THIS AM NEEDED TO HAVE BIPAP ON AFTER AMBULATION TO RESTROOM UNABLE TO RECOVER ON NC, PATIENT HAS BEEN ON 5L NC AT REST AND 7L NC WITH EXERTION, PATIENT IS CURRENTLY RESTING IN BED AND NO CONCERNS OVER NIGHT.
--- NOTE | 2021-06-06 13:18 | NUR ---
UPDATE: PT CONTINUES TO REQUIRE O2 VIA OXYMIZER AT 15 L/MIN TO MAINTAIN O2 SATS 90-92%. PT DID WEAR THE BIPAP FOR APPROX 1.5 HOURS WITH SIMILAR O2 SATS. DR RAHMAN TO AND FROM BEDSIDE FOR EVAL, PLANNING TO PLACE ORDERS FOR ADDITIONAL TESTING. PT RESTING QUIETLY IN ROOM, NAD AT THIS TIME, CALL LIGHT WITHIN REACH.
--- NOTE | 2021-06-06 19:54 | NUR ---
SHIFT SUMMARY: PT CONTINUES A&OX4, ANXIOUS AT TIMES BUT EASILY CONSOLED, NONPRODUCTIVE COUGH, REQUIRING HIFLOW O2 TO MAINTAIN O2 SATS >90%, SR-ST ON MONITOR, CONTINENT TO BSC WITH SBA D/T O2 NEEDS. PT USES CALL LIGHT APPROPRIATELY TO MAKE NEEDS KNOWN. REPORT HAS BEEN GIVEN TO ESTER EL TO ASSUME CARE OF PT.
[2021-06-07 04:02] LABS: Hematocrit 43.5 % (33.0-51.0); Mean Corpuscular HGB 31.6 pg (26.0-34.0); Mean Corpuscular HGB Conc 34.5 g/dL (31.5-36.5); Mean Corpuscular Volume 92 fL (80-100); Mean Platelet Volume 9.5 fL (9.1-12.4); Platelet Count 258 K/mm3 (150-400); RDW Coefficient Variation 12.8 % (11.7-14.2); RDW Standard Deviation 43.5 fL (35.1-46.3); Red Blood Cell Count 4.74 M/mm3 (3.80-5.20); White Blood Cell Count 18.02 K/mm3 (4.00-11.30)
[2021-06-07 04:25] LABS: Albumin, Blood 3.5 g/dL (3.4-5.0); Anion Gap 8 mmol/L (6-16); Blood Urea Nitrogen 25 mg/dL (8-24); Bun/Creatinine Ratio 29.7 (12.0-20.0); CO2, Blood 23 mmol/L (21-32); Calcium, Blood 8.8 mg/dL (8.5-10.1); Chloride, Blood 105 mmol/L (98-108); Creatinine, Blood 0.84 mg/dL (0.40-1.00); Glomerular Filtration Rate >60 (60-); Glucose, Blood 118 mg/dL (70-99); Phosphorus, Blood 4.8 mg/dL (2.5-4.9); Potassium, Blood 4.7 mmol/L (3.5-5.5); Sodium, Blood 136 mmol/L (136-145)
--- NOTE | 2021-06-07 04:45 | NUR ---
SHIFT SUMMARY ASSUMED CARE OF PT AT 1900. PT IS A/OX4. HEART SOUNDS REGULAR. LUNG SOUNDS HAVE WHEEZING ALL OVER. PT WAS ON THE BIPAP DURING THE NIGHT FLOW WAS OT 55LPM AT THE BEGINNING OF THIS BUT WAS TITRATED DOWN TO 35LPM. THIS AM SHE HAD TO BE TURNED UP TO 45LPM DUE TO DECREASED SATURATIONS OF 87-89. PT WAS COMLIANT WITH CHEST THERAPY AND STATES IT HAS HELPED HER A LOT BUT THIS AM SHE FEELS LIKE SHE IS NOT GETTING ENOUGH AIR. PT USED FLUTTER VALUE EVERY COUPLE HOURS WHILE AWAKE. PT WAS A 1P ASSIT TO BAATHROOM, BUT THIS AM SHE HAD TO USE THE BSC DUE TO SOB AND WEAKNESS. CALL LIGHT IN REACH, BED IN LOWEST POSTION.
[2021-06-07 05:28] LABS: PCO2 Arterial 30.3 mmHg (35-45); PO2 Arterial 54.4 mmHg (80-100); pH Blood Arterial 7.47 (7.35-7.45)
--- NOTE | 2021-06-07 08:24 | NUR ---
Bedside report received from Janet NORMAN around 0715 this morning. AT the time, the ptwas on cpap and also receiving CPT with RT attending at the bedside. Pt was tolerating that well. spo2 90% on 90% fio2. She is sitting up eating her breakfast right now. She has a frequent moist, non-productive cough. Spo2 drops to 86 during the coughing episodes. Wearing the AirVo at 90% fio2, 45 l/min flow.
--- NOTE | 2021-06-07 09:12 | NUR ---
Pt was able to tolerate walking into the bathroom to void while wearing hi-lamin n.c. at 15 l/min. AFter the activity, she was placed back on the AirVo at 50 l/min, 90% fio2.
--- NOTE | 2021-06-07 09:36 | NUR ---
AIR VO SETTINGS DECREASED Pt states that she feels the congestion has eased up and that the o2 flow was too high. Noted spo2 96% on prior settings. Decreased to 35 l/min flow, and fio2 85%. A few minutes later pt states it is better, quite adequate. Noted spo2 is 90-93%, and heart rate 100 bpm, decreased from 120 bpm which was earlier during some activity.
--- NOTE | 2021-06-07 13:20 | NUR ---
Pt called, states that she feels more rested after taking a nap. Coughing frequently, but having a hard time to bring up the phlegm. Used BSC, then to recliner which she says feels better. Spo2 85% on 40 l/min Air vo with 80% fio2. Coughing frequently.spo2 improved to 89% after sitting up in recliner. Pt is ready to eat lunch. Food was cut up and options provided which are higher calorie, but easier to eat such as magic cup.
--- NOTE | 2021-06-08 03:53 | NUR ---
SHIFT SUMMARY PATIENT IS ALERT AND ORIENTED X4. 02 SATS 94% ON AIRVO @ 40L/FI02 65%. PT STATES SHE IS COUGHING UP SMALL AMOUNT OF YELLOWISH SPUTUM. PT SBA TO THE BATHROOM. PT SLEPT MOST THE NIGHT. VSS, NO ACUTE CHANGES. CALL LIGHT IN REACH.
--- NOTE | 2021-06-08 18:40 | NUR ---
Pt had difficulty breathing this morning and required a higher dosing of oxygen on the AirVo settings. Since then she has been slowly weaned down to 45% O2 delivery, up to 50% for recovery after having a sponge bath while in the recliner chair just briefly, and remained at 40 l/min flow throughout the shift. She states that she is having most of her difficulty breathing in the mornings. Encouraged her to pace her activities and take breaks before, during
[2021-06-09 03:42] LABS: BASOPHILS ABSOLUTE AUTO 0.02 K/mm3 (0.00-0.23); BASOPHILS PERCENT AUTO 0 % (0-2); EOSINOPHILS ABSOLUTE AUTO 0.06 K/mm3 (0.00-0.68); EOSINOPHILS PERCENT AUTO 1 % (0-6); Hematocrit 45.6 % (33.0-51.0); Hemoglobin 15.5 g/dL (11.5-16.0); IMMATURE GRAN ABSOLUTE AUTO 0.12 K/mm3 (0.00-0.10); IMMATURE GRAN PERCENT AUTO 1 % (0-1); LYMPHOCYTES ABSOLUTE AUTO 2.63 K/mm3 (0.84-5.20); LYMPHOCYTES PERCENT AUTO 20 % (21-46); MONOCYTES ABSOLUTE AUTO 1.02 K/mm3 (0.16-1.47); MONOCYTES PERCENT AUTO 8 % (4-13); Mean Corpuscular HGB 31.4 pg (26.0-34.0); Mean Corpuscular Volume 93 fL (80-100); Mean Platelet Volume 9.3 fL (9.1-12.4); NEUTROPHILS ABSOLUTE AUTO 9.38 K/mm3 (1.96-9.15); NEUTROPHILS PERCENT AUTO 71 % (41-73); Platelet Count 272 K/mm3 (150-400); RDW Coefficient Variation 12.8 % (11.7-14.2); RDW Standard Deviation 43.7 fL (35.1-46.3); Red Blood Cell Count 4.93 M/mm3 (3.80-5.20); White Blood Cell Count 13.23 K/mm3 (4.00-11.30)
[2021-06-09 04:00] LABS: Bun/Creatinine Ratio 36.8 (12.0-20.0); Calcium, Blood 8.6 mg/dL (8.5-10.1); Creatinine, Blood 0.95 mg/dL (0.40-1.00); Potassium, Blood 4.8 mmol/L (3.5-5.5)
--- NOTE | 2021-06-09 04:07 | NUR ---
SHIFT SUMMARY PATIENT IS ALERT AND ORIENTED X4, PLEASANT AND COOPERATIVE. 02 SATS 92% ON AIRVO AT 40L/FI02 4O%. SOME SOB WITH EXERTION STILL. SBA TO THE BATHROOM. HR SR @70s. PT SLEPT MOST THE NIGHT. VSS, NO ACUTE CHANGES. CALL LIGHT IN REACH.
--- NOTE | 2021-06-09 14:07 | NUR ---
SHIFT SUMMARY: ACUTE RESPIRATORY FAILURE PATIENT IS ALERT AND ORIENTED X4. PATIENT IS ON 12L OF OXYGEN NC AND HER SATS ARE >90%. SHE HAS BEEN USING HER INSPIROMETER AND IS AMBULATING WITHIN THE ROOM A SBA. SHE STILL BECOMES DYSPNIC UPON EXERTION, BUT SHE REPORTS "FEELING BETTER". STEROIDS AND RESPIRATORY THERAPY TREATMENTS HAVE BEEN GIVEN TO HER THROUGHOUT THE DAY. SHE IS TOLERATING PO INTAKE AND IS VOIDING. SHE STILL COUGHS UP YELLOWISH SPEUTUM OCCASIONALLY DURING THE DAY. THE PLAN IS TO CONTINUE TO HAVE RESPIRATORY TREATMENTS/INSPIROMETER USE AND TO WORK WITH PT TO INCREASE STAMINA.
--- NOTE | 2021-06-10 07:44 | NUR ---
SUMMARY PT REPORTS FEELING BETTER DAILY.ALTHOUGH CONTINUES WITH COUGH AND SOB WITH ACTIVITY.
--- NOTE | 2021-06-10 14:36 | NUR ---
Met briefly with Lesa this afternoon. Her sister is at the bedside visiting her. Lesa reports she is feeling a little better, although she reports that she is more SOB after showering today. Her POLST is completed and signed by . Copy made for medical records and faxed to the [place] POLST Registry. She sent her AD home with her sister and has no questions at this time.
--- NOTE | 2021-06-10 17:53 | NUR ---
SHIFT SUMMARY PT HAS BEEN A/O X4, IND IN ROOM. TITRATING O2 DOWN PER RT TODAY; PT ON 8-10L CURRENTLY. SHE IS RECEIVING BREATHING TREATMENTS PER RT T/O THE SHIFT. BP HAS BEEN LOW TODAY, HOWEVER PT DENIES DIZZINESS. SHE WAS ABLE TO SHOWER TODAY AND HAD A VISITOR. PT RESTING AT THIS TIME, CALL LIGHT IN REACH.
--- NOTE | 2021-06-10 19:28 | NUR ---
ASSUMED CARE, PATIENT ON VEST, WILL ASSESS LATER AND CHART IN [facility].
--- NOTE | 2021-06-11 17:49 | NUR ---
SHIFT SUMMARY PT HAS BEEN INDEPENDENT IN HER ROOM TODAY. PT HAS BEEN UP TO THE CHAIR FOR THE MAJORITY OF THE AFTERNOON AND FOR EACH MEAL. PT HAS PARTICIPATED IN CARE, COMPLETING BREATHING TREATMENTS AND CPT. PT IS NOW ON 6L O2 VIA NC. BP HAS BEEN SOFT BUT THE MAP'S HAVE BEEN IN THE 70s. PT IS HAVING DINNER IN HER ROOM AT THIS TIME
--- NOTE | 2021-06-12 05:19 | NUR ---
SHIFT SUMMARY ASSUMED CARE OF PT AT 1900. PT IS A/OX4. HEART SOUNDS REGULAR, TELE SHOWS SINUS. LUNG SOUNDS HAVE INSPIRATORY AND EXPIRATORY WHEEZING. RT CONSULTED WITH CARE. PT WAS ON 5L HIGH FLOW DURING THE NIGHT. PT STATES THAT SHE STILL FEEL LIKE SHE HAS STUFF TO COUGH UP AND SOMETIMES CAN COUGH UP THICK WITH A SMALL YELLOW TINT. PT WAS INDEPENT TO THE BATHROOM. CALL LIGHT IN REACH, BED IN LOWEST POSTION.
--- NOTE | 2021-06-12 12:12 | NUR ---
Fully signed and completed POLST form provided to medical records for scanning into EMR.
[2021-06-12 13:24] LABS: BASOPHILS ABSOLUTE AUTO 0.03 K/mm3 (0.00-0.23); BASOPHILS PERCENT AUTO 0 % (0-2); EOSINOPHILS ABSOLUTE AUTO 0.01 K/mm3 (0.00-0.68); EOSINOPHILS PERCENT AUTO 0 % (0-6); Hematocrit 49.9 % (33.0-51.0); Hemoglobin 16.7 g/dL (11.5-16.0); IMMATURE GRAN ABSOLUTE AUTO 0.15 K/mm3 (0.00-0.10); IMMATURE GRAN PERCENT AUTO 1 % (0-1); LYMPHOCYTES ABSOLUTE AUTO 1.06 K/mm3 (0.84-5.20); LYMPHOCYTES PERCENT AUTO 7 % (21-46); MONOCYTES ABSOLUTE AUTO 0.17 K/mm3 (0.16-1.47); MONOCYTES PERCENT AUTO 1 % (4-13); Mean Corpuscular HGB 31.3 pg (26.0-34.0); Mean Corpuscular HGB Conc 33.5 g/dL (31.5-36.5); Mean Corpuscular Volume 94 fL (80-100); Mean Platelet Volume 9.1 fL (9.1-12.4); NEUTROPHILS PERCENT AUTO 90 % (41-73); Platelet Count 326 K/mm3 (150-400); RDW Coefficient Variation 12.6 % (11.7-14.2); RDW Standard Deviation 43.5 fL (35.1-46.3); Red Blood Cell Count 5.33 M/mm3 (3.80-5.20); White Blood Cell Count 14.52 K/mm3 (4.00-11.30)
[2021-06-12 13:54] LABS: Albumin, Blood 3.8 g/dL (3.4-5.0); Anion Gap 7 mmol/L (6-16); Blood Urea Nitrogen 25 mg/dL (8-24); Bun/Creatinine Ratio 24.5 (12.0-20.0); CO2, Blood 27 mmol/L (21-32); Calcium, Blood 8.8 mg/dL (8.5-10.1); Chloride, Blood 98 mmol/L (98-108); Creatinine, Blood 1.02 mg/dL (0.40-1.00); Glomerular Filtration Rate 55 (60-); Glucose, Blood 227 mg/dL (70-99); Magnesium, Blood 2.2 mg/dL (1.6-2.4); Phosphorus, Blood 2.8 mg/dL (2.5-4.9); Potassium, Blood 4.7 mmol/L (3.5-5.5); Sodium, Blood 132 mmol/L (136-145); Thyroid Stimulating Hormone 0.636 uIU/mL (0.360-4.800)
--- NOTE | 2021-06-12 18:04 | NUR ---
SHIFT SUMMARY PT HAS CONTINUED TO BE INDEPENDENT IN THE ROOM TODAY. PT WAS ABLE TO HAVE A SHOWER THIS EVENING INDEPENDENTLY. PT HAS BEEN UP TO THE CHAIR FOR EACH MEAL. PT'S O2 NEEDS HAVE DECREASED, SHE IS CURRENTLY ON 6L. PT HAS BEEN COOPERATIVE WITH CARE AND RECEIVING CPT AND BREATHING TREATMENTS. PT HAS CONTINUED TO HAVE SOFT BP TODAY AND HER MORNING DOSE OF ZESTRIL AND METOPROLOL WERE SKIPPED DUE TO THIS, THEN THIS AFTERNOON PT HAD AN ELEVATED HR. PT WAS GIVEN A 500ml BOLUS OF NS AND HAS BEEN ENCOURAGED TO DRINK FLUIDS, NO ABNORMALITIES WITH THE EKG AND HR HAS CONTINUED TO IMPROVE. PT IS IN HER ROOM HAVING DINNER AT THIS TIME
--- NOTE | 2021-06-12 20:30 | NUR ---
PT REPORTS SHE IS FEELING "MUCH BETTER." REPORTS SHE CAN "BREATHE BETTER." PT DENIES ANY PAIN, CHEST PAIN, NAUSEA, OR NUMBNESS AND TINGLING. PT DENIES URINARY COMPLICATIONS, AND REPORTS SHE HAD A BM YESTERDAY. IV TO LEFT FA FLUSHES EASILY. PT DENIES ANY REQUESTS AT THIS TIME. CALL LIGHT WITHIN REACH. BED IN LOW POSITION. FLUIDS AT BEDSIDE.
[2021-06-13 04:18] LABS: BASOPHILS ABSOLUTE AUTO 0.02 K/mm3 (0.00-0.23); BASOPHILS PERCENT AUTO 0 % (0-2); EOSINOPHILS ABSOLUTE AUTO 0.12 K/mm3 (0.00-0.68); EOSINOPHILS PERCENT AUTO 1 % (0-6); Hematocrit 41.8 % (33.0-51.0); Hemoglobin 14.2 g/dL (11.5-16.0); IMMATURE GRAN ABSOLUTE AUTO 0.13 K/mm3 (0.00-0.10); IMMATURE GRAN PERCENT AUTO 1 % (0-1); LYMPHOCYTES ABSOLUTE AUTO 4.21 K/mm3 (0.84-5.20); LYMPHOCYTES PERCENT AUTO 31 % (21-46); MONOCYTES PERCENT AUTO 6 % (4-13); Mean Corpuscular HGB 31.4 pg (26.0-34.0); Mean Corpuscular Volume 93 fL (80-100); Mean Platelet Volume 9.1 fL (9.1-12.4); NEUTROPHILS ABSOLUTE AUTO 8.24 K/mm3 (1.96-9.15); NEUTROPHILS PERCENT AUTO 61 % (41-73); Platelet Count 289 K/mm3 (150-400); RDW Coefficient Variation 12.8 % (11.7-14.2); RDW Standard Deviation 43.3 fL (35.1-46.3); Red Blood Cell Count 4.52 M/mm3 (3.80-5.20); White Blood Cell Count 13.52 K/mm3 (4.00-11.30)
[2021-06-13 04:38] LABS: Anion Gap 3 mmol/L (6-16); Blood Urea Nitrogen 20 mg/dL (8-24); Bun/Creatinine Ratio 23.5 (12.0-20.0); CO2, Blood 28 mmol/L (21-32); Calcium, Blood 8.4 mg/dL (8.5-10.1); Chloride, Blood 104 mmol/L (98-108); Creatinine, Blood 0.85 mg/dL (0.40-1.00); Glomerular Filtration Rate >60 (60-); Glucose, Blood 77 mg/dL (70-99); Potassium, Blood 4.3 mmol/L (3.5-5.5); Sodium, Blood 135 mmol/L (136-145)
--- NOTE | 2021-06-13 05:37 | NUR ---
SHIFT SUMMARY - PT IS HOPEFUL THAT SHE WILL BE DISCHARGED HOME TODAY. PT WILL NEED A HOME O2 EVAL BEFORE GOING HOME - ORDER IN PLACE. NO ACUTE CHANGES THROUGHOUT THIS SHIFT. PT REPORTED HER BREATHING " BETTER." SATS WNL THROUGHOUT THE NIGHT, PT ON CONTINUOUS BIOX. CALL LIGHT WITHIN REACH. BED IN LOW POSITION. FLUIDS AT BEDSIDE. PT HAS BEEN UP INDEPENDENTLY TO THE BRP.
[2021-06-13] MEDS ORDERED: ASPI81CH PO (11:00)
[2021-06-13] MEDS ORDERED: BUME1 PO (11:01)
[2021-06-13] MEDS ORDERED: MELATONIN5 M1 PO (11:02)
[2021-06-13] MEDS ORDERED: FAMO20 PO (11:02)
[2021-06-13] MEDS ORDERED: MIRALAX17 GM PO (11:03)
--- NOTE | 2021-06-13 13:08 | NUR ---
PT DISHCARGE PT PROVIDED WITH DISHCARGE INSTRUCTIONS FROM PHYSICIAN. MEDICATIONS FAXED TO PT'S PREFERRED PHARMACY. PT REQUESTING TO HAVE RESOURCES FOR IMPENDING MEDICAL BILLS. DISHCARGE PULP MILL TEAM LEADER AWARE, PT PROVIDED WITH RESOURCES. VS STABLE. HOME O2 EVAL DONE, SEE NOTES. [facility]RE PROVIDED HOME O2 TANK FOR TRANSPORT. IV REMOVED. TELE REMOVED. PT BROUGHT TO SISTER'S VEHICLE BY WHEELCHAIR WITH BELONGINGS ON 5 L OF OXYGEN VIA NC.
== END 2021-06-13 12:31 | disposition home or self-care (01) | DRG 189 ==
LOC: ER 09:10 → PCU 10:54
PROVIDERS: Emergency Medicine; Internal Medicine; Internal Medicine Pulmonary Disease; ADMIT Internal Medicine
PROC: 5A09557 Assistance with Respiratory Ventilation, Greater than 96 Consecutive Hours, Continuous Positive Airway Pressure (ICD-10-PCS; principal; 2021-06-04)
DX: J96.01 Acute respiratory failure with hypoxia (principal); I50.42 Chronic combined systolic (congestive) and diastolic (congestive) heart failure; I42.8 Other cardiomyopathies; J98.11 Atelectasis; Z66 Do not resuscitate; F17.210 Nicotine dependence, cigarettes, uncomplicated; D45 Polycythemia vera; I25.10 Atherosclerotic heart disease of native coronary artery without angina pectoris; D72.829 Elevated white blood cell count, unspecified; T38.0X5A Adverse effect of glucocorticoids and synthetic analogues, initial encounter; I27.22 Pulmonary hypertension due to left heart disease; Z20.822 Contact with and (suspected) exposure to COVID-19; I08.1 Rheumatic disorders of both mitral and tricuspid valves; J43.2 Centrilobular emphysema; Z79.52 Long term (current) use of systemic steroids; Z90.710 Acquired absence of both cervix and uterus; Z98.890 Other specified postprocedural states; Z98.51 Tubal ligation status; Z79.51 Long term (current) use of inhaled steroids; Z79.899 Other long term (current) drug therapy; Z79.83 Long term (current) use of bisphosphonates
CPT/HCPCS: 0202U; 36415; 36600; 71045; 71260; 80048; 80053; 80069; 82803; 83735; 84145; 84443; 84484; 85025; 85027; 93005; 93010; 94640; 94644; 94660; 94664; 94667; 94668; 94761; 94762; 96374; 97110; 97162; 97530; 97530-CQ; 99285-25; 99406; 99407; A9270; J0696; J1650; J2920; J2930; J7040; J7050; J7512; Q9967; U0004

== ENCOUNTER → 2021-09-06 | Outpatient (CLI) | payer OTHER ==
[~2021-09-06] MED LIST changes: +ASPI81CH PO; +BUME1 PO; +MELATONIN5 M1 PO; +MIRALAX17 GM PO
== END ==
LOC: LAB 10:52 → LAB SHORT 10:52
DX: J18.9 Pneumonia, unspecified organism (principal)
CPT/HCPCS: 87070; 87205

== ENCOUNTER 2022-05-23 12:18 | Day surgery (SDC) | payer OTHER ==
[~2022-05-23] VITALS: Ht 167.6 cm; Wt 58.9 kg
== END 2022-05-23 14:28 | disposition home or self-care (01) ==
LOC: ORSCSDS 12:18
PROVIDERS: Ophthalmology
PROC: 08RK3JZ Replacement of Left Lens with Synthetic Substitute, Percutaneous Approach (ICD-10-PCS; principal; 2022-05-23 13:30)
DX: H25.12 Age-related nuclear cataract, left eye (principal); H52.202 Unspecified astigmatism, left eye; I10 Essential (primary) hypertension; J44.9 Chronic obstructive pulmonary disease, unspecified; F17.210 Nicotine dependence, cigarettes, uncomplicated; Z79.899 Other long term (current) drug therapy
CPT/HCPCS: J2001; J2250; J3010; J3301; J7040; J7120; V2632

== ENCOUNTER 2022-06-13 09:11 | Day surgery (SDC) | payer OTHER ==
[~2022-06-13] VITALS: Ht 167.6 cm; Wt 58.6 kg
--- NOTE | 2022-06-13 09:45 | NUR ---
06/13/22 0945 ALDAIR BADILLO T: 0930 P:0935 PT READY FOR OR, DR. DEL ANGEL IN TO [facility]. CALL LIGHT IN HAND
== END 2022-06-13 11:17 | disposition home or self-care (01) ==
LOC: ORSCSDS 09:11
PROVIDERS: Ophthalmology
PROC: 08RJ3JZ Replacement of Right Lens with Synthetic Substitute, Percutaneous Approach (ICD-10-PCS; principal; 2022-06-13 10:30)
DX: H25.11 Age-related nuclear cataract, right eye (principal); Z96.1 Presence of intraocular lens; J44.9 Chronic obstructive pulmonary disease, unspecified; H52.209 Unspecified astigmatism, unspecified eye; I10 Essential (primary) hypertension; Z79.899 Other long term (current) drug therapy
CPT/HCPCS: J2001; J2250; J2704; J3010; J3301; V2632

== ENCOUNTER → 2023-09-10 | Outpatient (CLI) | payer OTHER | LOC: LAB 10:48 → LAB SHORT 10:48 | DX: J44.9 Chronic obstructive pulmonary disease, unspecified (principal) | CPT/HCPCS: 87070; 87205 ==

== ENCOUNTER 2024-09-22 07:22 | Day surgery (SDC) | payer OTHER ==
[~2024-09-22] VITALS: Ht 167.6 cm; Wt 55.9 kg
[~2024-09-22 07:22] MED LIST changes: +AMOX-CLAV 875-1 EAC5 PO; +ATROVENT HFA12.9 GM INH; +AZIT250 PO; +CALTRATE 600 P1 EACH PO; +COMBIVENT RESPIM4 G1 INH; +CYCL10 PO; +Calcium Carbon500 MG PO; -Caltrate-600 W1 EACH PO; +FLUTICASONE-SA1 EAC1 INH; +FURO40 PO; +LEVO750 PO; +MELA3 PO; +Milk Of Ma400 MG/5 M PO; +Nicoderm Cq1 EAC1 TOP; +PANT20 PO; +POTA10T PO; +PULMICORT0.5 MG/21 INH; +ROSUVASTATIN CAL5 MG PO; +Tessalon200 MG PO; +VISBIOME 112.51 EACH; +[UNRECOGNIZED DRUG - OTHER] TOP
[2024-09-22] MEDS ORDERED: propofoL 50 ML IV ONE ×2 (07:36→08:53)
[2024-09-22] MEDS ORDERED: Lactated Ringer's 1,000 ML IV ONE ×2 (07:37→08:27)
[2024-09-22] MEDS ORDERED: FentaNYL Citrate 50 MCG/ML 2 ML Injection ONE (08:53)
[2024-09-22] MEDS ORDERED: Midazolam HCL 1 MG/ML 5MLVIAL ONE (08:53)
[2024-09-22 09:46] VITALS: BP 112/70
== END 2024-09-22 09:47 | disposition home or self-care (01) ==
LOC: ORSCSDS 07:22
PROVIDERS: Surgery
PROC: 0DJD8ZZ Inspection of Lower Intestinal Tract, Via Natural or Artificial Opening Endoscopic (ICD-10-PCS; principal; 2024-09-22 08:30)
DX: Z12.11 Encounter for screening for malignant neoplasm of colon (principal); Z86.0101 Personal history of adenomatous and serrated colon polyps; J44.9 Chronic obstructive pulmonary disease, unspecified; J45.909 Unspecified asthma, uncomplicated; J43.9 Emphysema, unspecified; I50.22 Chronic systolic (congestive) heart failure; I10 Essential (primary) hypertension; E78.5 Hyperlipidemia, unspecified; I27.20 Pulmonary hypertension, unspecified; I47.19 Other supraventricular tachycardia; Z79.899 Other long term (current) drug therapy; F17.210 Nicotine dependence, cigarettes, uncomplicated
CPT/HCPCS: J2250; J2704; J3010; J7120